=== PATIENT | male | born 1995 | race Caucasian/White ===

== ENCOUNTER 2020-12-04 09:56 | Day surgery (SDC) | payer OTHER ==
--- NOTE | 2020-12-03 09:44 | NUR ---
ANESTHESIA REVIEWED PRE SURGICAL TESTING, OK FOR SURGERY.
[~2020-12-04] VITALS: Ht 167.6 cm; Wt 108.0 kg
[2020-12-04 10:47] VITALS: BP 127/79
[2020-12-04 18:28] VITALS: BP 120/67
== END 2020-12-04 18:00 | disposition home or self-care (01) ==
LOC: DS 09:56 → OR 14:00 → DS 14:00
PROVIDERS: ATTEND Surgery
DX: K81.1 Chronic cholecystitis (principal); E66.9 Obesity, unspecified; Z68.38 Body mass index [BMI] 38.0-38.9, adult
CPT/HCPCS: J0131; J0690; J1170; J2001; J2405; J2765; J3010; J3490